=== PATIENT | male | born 1995 | race Caucasian/White ===

== ENCOUNTER 2018-01-25 23:21 | Emergency (ER) | payer BC, OTHER | END 2018-01-26 01:44 | disposition home or self-care (01) | LOC: ERS 23:21 | DX: F10.129 Alcohol abuse with intoxication, unspecified (principal); F98.8 Other specified behavioral and emotional disorders with onset usually occurring in childhood and adolescence; Z79.899 Other long term (current) drug therapy | CPT/HCPCS: 80053; 80307; 82140; 82553; 83690; 84443; 84484; 85025; 96360 ==